=== PATIENT | female | born 1965 | race Caucasian/White ===

== ENCOUNTER 2020-11-11 20:12 | Emergency (ER) | payer SELFPAY ==
[~2020-11-11] VITALS: Ht 157.5 cm; Wt 66.0 kg
[2020-11-11 20:19] VITALS: BP 133/71
== END 2020-11-11 23:24 | disposition left against medical advice (07) ==
LOC: ER 20:12
DX: Z53.21 Procedure and treatment not carried out due to patient leaving prior to being seen by health care provider (principal); J45.909 Unspecified asthma, uncomplicated; E11.9 Type 2 diabetes mellitus without complications; I10 Essential (primary) hypertension; Z86.16 Personal history of COVID-19; Z98.51 Tubal ligation status; Z98.890 Other specified postprocedural states